=== PATIENT | female | born 1950 | race Caucasian/White ===

== ENCOUNTER 2021-01-16 13:10 | Inpatient (IN) | payer OTHER, SELFPAY ==
[~2021-01-16] VITALS: Ht 162.6 cm; Wt 68.0 kg
[2021-01-16 13:18] VITALS: BP 102/64
--- NOTE | 2021-01-16 13:31 | NUR ---
PT W/C ASSISTED TO BED 4.
--- NOTE | 2021-01-16 13:45 | NUR ---
70/F presents to ED with c/o fall and c/o head, neck and left leg pain. Patient states she does not recall when or how she fell, stating she was seen at a clinic and given xrays stating she was told she had a fractured femur and was told to follow up at the ED. Patient reports 9/10 pain that worsens with movement, denies cp, sob, N/V/D, or urinary symptoms. No other complaints at this time.
[2021-01-16] MEDS ORDERED: NACL 0.9% 500 ML IV ONE (13:50)
[2021-01-16] MEDS ORDERED: MORPHINE SULFATE 4 MG/ML SYR IVP ONE (13:50)
[2021-01-16] MEDS ORDERED: ONDANSETRON 4 MG/2 ML VIAL IVP ONE (13:50)
[2021-01-16 14:25] LABS: BASOPHILS # (AUTO) 0.1 K/uL (0.00-0.22); BASOPHILS % (AUTO) 0.8 % (0.0-2.0); EOSINOPHILS # (AUTO) 0.3 K/uL (0-0.4); EOSINOPHILS % (AUTO) 2.9 % (0.0-4.0); HEMATOCRIT 25.4 % (36-48); LYMPHOCYTES # (AUTO) 2.5 K/uL (2.5-16.5); MEAN CORPUSCULAR HEMOGLOBIN 22 pg (27-31); MEAN CORPUSCULAR HGB CONC 32 g/dL (33-37); MEAN CORPUSCULAR VOLUME 69.2 fL (80-94); MONOCYTES # (AUTO) 1.2 K/uL (0.8-1.0); MONOCYTES % (AUTO) 10.6 % (1.7-9.3); NEUTROPHILS # (AUTO) 7.6 K/uL (1.8-7.7); NEUTROPHILS % (AUTO) 64.7 % (42.2-75.2); PLATELET COUNT (AUTO) 460 K/uL (140-450); RED BLOOD CELL COUNT(AUTO) 3.67 MIL/uL (4.20-5.40); RED CELL DISTRIBUTION WIDTH 15.5 % (11.6-13.7); WHITE BLOOD COUNT (AUTO) 11.7 K/uL (4.8-10.8)
[2021-01-16 14:37] LABS: ANION GAP 10.8 (8-16); CARBON DIOXIDE 31.5 mmol/L (21-32); POTASSIUM 3.3 mmol/L (3.5-5.1)
--- NOTE | 2021-01-16 15:00 | NUR ---
Patient appears to be resting, on bedside cardiac surgeon. All needs met at this time.
[2021-01-16] MEDS ORDERED: DOCUSATE SODIUM 100 MG GELCAP PO PRN (15:50)
[2021-01-16] MEDS ORDERED: MORPHINE SULFATE 2 MG/ML SYR IVP PRN (15:50)
[2021-01-16] MEDS ORDERED: SODIUM PHOS / POTASSIUM PHOS 1 PKT PDR PO PRN (15:50)
[2021-01-16] MEDS ORDERED: LORazepam 2 MG/ML VIAL IM/IVP PRN (15:50)
[2021-01-16] MEDS ORDERED: ACETAMINOPHEN 325 MG TAB PO PRN (15:50)
[2021-01-16] MEDS ORDERED: NACL 0.9% 1,000 ML IV SCH (15:50)
[2021-01-16] MEDS ORDERED: HYDROcodone/APAP 5/325 MG 1 TAB TAB PO PRN (15:50)
[2021-01-16] MEDS ORDERED: MAG SULF 2000 MG/WATER PREMIX 50 ML IV PRN (15:50)
[2021-01-16] MEDS ORDERED: ZOLPIDEM 5 MG TAB PO PRN (15:50)
[2021-01-16] MEDS ORDERED: ONDANSETRON 4 MG/2 ML VIAL IVP PRN (15:50)
[2021-01-16] MEDS ORDERED: POTASSIUM CHLORIDE 10 MEQ TABER PO PRN (15:50)
[2021-01-16 16:38] LABS: CHOL/HDL RATIO 2.7 (1-4.5); FREE T4 (FREE THYROXINE) 1.23 ng/dL (0.76-1.46); PHOSPHORUS 3.1 mg/dL (2.5-4.9); THYROID STIMULATING HORMONE 2.57 uIU/mL (0.34-3.74)
--- NOTE | 2021-01-16 17:00 | NUR ---
Patients diaper changed, new sheets provided. Patient placed in a position of comfort.
[2021-01-16] MEDS ORDERED: POTASSIUM CHLORIDE 20% 40 MEQ/15 ML UDC PO SCH (17:30)
[2021-01-16 17:43] LABS: APPEARANCE,URINE CLEAR (CLEAR); BILIRUBIN,URINE NEGATIVE (NEGATIVE); BLOOD, URINE TRACE-I (NEGATIVE); COLOR,URINE YELLOW (YELLOW); LEUKOCYTE ESTERASE ,URINE TRACE (NEGATIVE); NITRITE, URINE NEGATIVE (NEGATIVE); UGLUCOSE NEGATIVE (NEGATIVE)
[2021-01-16] MEDS ORDERED: FERR-21 PO (18:26)
[2021-01-16] MEDS ORDERED: ASPI-1749 PO (18:26)
[2021-01-16] MEDS ORDERED: QUET100T PO (18:26)
[2021-01-16] MEDS ORDERED: LISI-486 PO (18:26)
[2021-01-16] MEDS ORDERED: DIVA500T1 PO (18:26)
[2021-01-16] MEDS ORDERED: DOCU-299 PO (18:26)
[2021-01-16] MEDS ORDERED: CARV3.12 PO (18:26)
[2021-01-16] MEDS ORDERED: HYDR-4004 PO (18:26)
[2021-01-16] MEDS ORDERED: ASCO500T95 PO (18:28)
[2021-01-16] MEDS: DEXT 5% / NACL 0.45% 1,000 ML IV SCH (18:29)
--- NOTE | 2021-01-16 18:35 | NUR ---
PT APPEARS TO BE RESTING. ALL NEEDS MET AT THIS TIME.
--- NOTE | 2021-01-16 19:40 | NUR ---
PT WAS SEEN FOR DYSPHAGIA. PT WS ABLE TO SAFELY SWALLOW PUREE DIET WITH THIN LIQUID WITHOUT S/S OF ASPIRATION. RECOMMENDATION PUREE DIET WITH THIN LIQUID
[2021-01-16 20:00] VITALS: BP 110/61
[2021-01-16] MEDS: FERROUS SULFATE 325 MG TABEC PO SCH (21:00)
[2021-01-16] MEDS: carvediloL 3.125 MG TAB PO SCH (21:00)
[2021-01-16] MEDS: DOCUSATE SODIUM 100 MG GELCAP PO SCH (21:00)
[2021-01-16] MEDS: DIVALPROEX 500 MG TABER PO SCH (21:00)
[2021-01-16] MEDS: QUEtiapine FUMARATE 100 MG TAB PO SCH (21:00)
--- NOTE | 2021-01-16 21:00 | NUR ---
ALL DUE MEDICATIONS WERE ADMINISTERED BY MOUTH, WELL TOLERATED BY THE PATIENT.
[2021-01-16 22:00] VITALS: BP 106/44
[2021-01-17] MEDS: DEXT 5% / NACL 0.45% 1,000 ML IV SCH ×3 (03:40→23:40)
--- NOTE | 2021-01-17 03:56 | NUR ---
PATIENT RECEIVED IN BED ALERT AND COHERENT NO S/S OF DISTRESS, DENIES PAIN
[2021-01-17 04:00] VITALS: BP 94/47
[2021-01-17 06:41] LABS: ALBUMIN 2.5 g/dL (3.4-5.0); ANION GAP 11.5 (8-16); CARBON DIOXIDE 28.1 mmol/L (21-32); CREATININE 0.9 mg/dL (0.6-1.3); MAGNESIUM 2.1 mg/dL (1.8-2.4); POTASSIUM 3.6 mmol/L (3.5-5.1); TOTAL BILIRUBIN 1.1 mg/dL (0.0-1.0)
[2021-01-17 08:00] VITALS: BP 97/52
--- NOTE | 2021-01-17 08:24 | NUR ---
REPORTS WERE GIVEN TO INCOMING RN, TRANSFER OF CARE ENDORSED.
--- NOTE | 2021-01-17 08:41 | NUR ---
PATIENT HAS BEEN SCREENED AND CATEGORIZED MODERATE NUTRITION RISK. PATIENT WILL BE SEEN WITHIN 3-5 DAYS OF ADMISSION. 01/19/21 01/21/[address]
[2021-01-17] MEDS: ASCORBIC ACID 500 MG TAB PO SCH (09:00)
[2021-01-17] MEDS: FERROUS SULFATE 325 MG TABEC PO SCH ×2 (09:00→21:00)
[2021-01-17] MEDS: DIVALPROEX 500 MG TABER PO SCH ×2 (09:00→21:00)
[2021-01-17] MEDS: hydroCHLOROthiazide 25 MG TAB PO SCH (09:00)
[2021-01-17] MEDS: DOCUSATE SODIUM 100 MG GELCAP PO SCH ×2 (09:00→21:00)
[2021-01-17] MEDS: lisinopriL 10 MG TAB PO SCH (09:00)
[2021-01-17] MEDS: carvediloL 3.125 MG TAB PO SCH ×2 (09:00→21:00)
[2021-01-17] MEDS: ASPIRIN 81 MG TAB.CHEW PO SCH (09:00)
--- NOTE | 2021-01-17 10:06 | NUR ---
RECEIVED REPORT FROM STEVEN, PT IS ALERT ORIENTED X 2 HAS S/P FALL FRACTURE ON LEFT FEMUR. PT IS NPO FOR POSSIBLE ORIF.
[2021-01-17 12:00] VITALS: BP 111/57
--- NOTE | 2021-01-17 12:00 | NUR ---
RECEIVED TELE PHONE CONSENT FROM ISAURA ALMONTE, DIRECTOR OF THE FACILITY OT CAME FROM, CONTACTED HIM ON THIS NUMBER [phone]. STEVEN WAS WITNESSED FOR THE CONSENT. MR. DELAROSA STATED THAT HE ALLOW THE PERMISSION AND CONSENT THAT PT CAN RECEIVE BLOOD TRANSFUSION AND ALSO CONSENTED FOR SURGERY.
--- NOTE | 2021-01-17 15:00 | NUR ---
RECEIVED CALL FROM OR NURSE THAT PT NEED TO RECEIVE BLOOD TRANSFUSION BEFORE THE SURGERY. WILL START INFUSION SHORTLY.
[2021-01-17] MEDS ORDERED: BUPIVACAINE-MPF/EPI 0.5% 30 ML VIAL INJ ONE (15:08)
--- NOTE | 2021-01-17 15:15 | NUR ---
PT IS IN THE BED NO SOB NOTED, BLOOD TRANSFUSION STARTED, BP 108/54, HR 68 97.4 98%, RR 18. DENIES PAIN AND DISCOMFORT AND ITCHINESS. WILL CONTINUE TO MONITOR THE PT.
--- NOTE | 2021-01-17 15:16 | NUR ---
STARTED BLOOD TRANSFUSION STARTED PT BP IS 108/54, HR 71. TEMP 97.4, 98%.
--- NOTE | 2021-01-17 15:30 | NUR ---
PT IS TOLERATING BLOOD TRANSFUSION NO REACTION NOTED. PT DENIES PAIN, ITCHINESS AND SOB. BP 114/53, HR 72, 97.8, RR 16. WILL STAY WITH THE PT AND CONTINUE TO MONITOR THE PT.
[2021-01-17 16:00] VITALS: BP 109/59
[2021-01-17] MEDS ORDERED: ETOMIDATE 20 MG/10 ML VIAL IVP ONE (16:20)
[2021-01-17] MEDS ORDERED: LIDOCAINE MPF 2% 100 MG/5 ML VIAL INJ ONE (16:21)
[2021-01-17] MEDS ORDERED: fentaNYL citrate 0.05 MG/ML VIAL ONE ×3 (16:21→20:39)
[2021-01-17] MEDS ORDERED: ROCURONIUM 50 MG/5 ML VIAL IV ONE ×2 (16:21→19:26)
[2021-01-17] MEDS ORDERED: SUCCINYLCHOLINE CHLORIDE 200 MG/10 ML VIAL IVP ONE (16:21)
[2021-01-17] MEDS ORDERED: PHENYLEPHRINE 10 MG/ML VIAL ONE ×2 (17:00→19:25)
--- NOTE | 2021-01-17 17:17 | NUR ---
PT TRANSFERRED TO OT FOR SURGERY,VITALS ARE STABLE, NO SOB NOTED AT THE TIME OF TRANSFER.
[2021-01-17] MEDS ORDERED: TRANEXAMIC ACID 1,000 MG in NACL 0.9% 50 ML IV STA (17:23)
[2021-01-17] MEDS ORDERED: TRANEXAMIC ACID 1,000 MG/10 ML VIAL IV SCH (17:25)
[2021-01-17] MEDS ORDERED: ePHEDrine 50 MG/ML VIAL ONE (19:25)
[2021-01-17] MEDS ORDERED: DEXAMETHASONE 4 MG/ML VIAL ONE (19:25)
--- NOTE | 2021-01-17 19:37 | NUR ---
ENDORSED THE NIGHT NURSE FOR CONTINUITY OF CARE. PT IS STABLE.
[2021-01-17] MEDS ORDERED: VANCOMYCIN 1,000 MG VIAL ONE (19:38)
[2021-01-17] MEDS ORDERED: ceFAZolin 1,000 MG VIAL ONE (19:39)
[2021-01-17] MEDS ORDERED: NEOSTIGMINE 1:1000 10 MG/10 ML VIAL ONE (19:41)
[2021-01-17] MEDS ORDERED: GLYCOPYRROLATE 0.2 MG/ML VIAL ONE ×2 (19:41)
[2021-01-17] MEDS ORDERED: diphenhydrAMINE 50 MG/ML VIAL IVP PRN (20:30)
[2021-01-17] MEDS ORDERED: LORazepam 2 MG/ML VIAL IVP PRN (20:30)
[2021-01-17] MEDS: LACTATED RINGERS 1,000 ML IV SCH (20:30)
[2021-01-17] MEDS ORDERED: ONDANSETRON 4 MG/2 ML VIAL IVP PRN (20:30)
[2021-01-17] MEDS: fentaNYL citrate 0.05 MG/ML VIAL IVP PRN ×2 (20:41→20:51)
[2021-01-17] MEDS: QUEtiapine FUMARATE 100 MG TAB PO SCH (21:00)
--- NOTE | 2021-01-17 21:48 | NUR ---
Pt arrived from OR Post Anesthesia Recovery Unit - accompanied by JONATHON Cardona. Akash HOLMAN.
[2021-01-18] MEDS: LACTATED RINGERS 1,000 ML IV SCH (05:00)
[2021-01-18] MEDS: DEXT 5% / NACL 0.45% 1,000 ML IV SCH ×2 (05:42→22:08)
[2021-01-18 07:20] LABS: ANION GAP 12.9 (8-16); CARBON DIOXIDE 26.5 mmol/L (21-32); CREATININE 0.9 mg/dL (0.6-1.3); POTASSIUM 4.4 mmol/L (3.5-5.1)
[2021-01-18 07:27] LABS: ALBUMIN 2.4 g/dL (3.4-5.0); MAGNESIUM 1.9 mg/dL (1.8-2.4); TOTAL BILIRUBIN 1.1 mg/dL (0.0-1.0)
--- NOTE | 2021-01-18 07:47 | NUR ---
RECEIVED REPORT FROM NIGHT NURSE, PT HAD ORIF SURGERY YESTERDAY. PT IS ON REGULAR DIET, IV FLUID D5NS1/2 RUNNING AT 100ML/HR. DENIES PAIN AND DISCOMFORT AT THE MOMENT WILL CONTINUE TO MONITOR PT.
[2021-01-18 08:00] VITALS: BP 94/50
[2021-01-18] MEDS: hydroCHLOROthiazide 25 MG TAB PO SCH (09:00)
[2021-01-18] MEDS: carvediloL 3.125 MG TAB PO SCH ×2 (09:00→22:09)
[2021-01-18] MEDS ORDERED: ERGOCALCIFEROL 50,000 IU SGL PO SCH (09:00)
[2021-01-18] MEDS: lisinopriL 10 MG TAB PO SCH (09:00)
[2021-01-18] MEDS: DIVALPROEX 500 MG TABER PO SCH ×2 (09:09→22:09)
[2021-01-18] MEDS: FERROUS SULFATE 325 MG TABEC PO SCH ×2 (09:09→21:00)
[2021-01-18] MEDS: ASPIRIN 81 MG TAB.CHEW PO SCH (09:09)
[2021-01-18] MEDS: DOCUSATE SODIUM 100 MG GELCAP PO SCH ×2 (09:10→22:08)
[2021-01-18] MEDS: ENOXAPARIN 40 MG/0.4 ML SYR SUBQ SCH (09:10)
[2021-01-18] MEDS: ASCORBIC ACID 500 MG TAB PO SCH (09:22)
--- NOTE | 2021-01-18 09:22 | NUR ---
ADMINISTERED ALL PRESCRIBED MEDICATIONS EXCEPT THE BLOOD PRESSURE PILLS. BLOOD PRESSURE IS 94/57 HR 59. WILL CONTINUE TO MONITOR PT FOR HYPOTENSIONS/HYPERTENSION.
[2021-01-18 12:00] VITALS: BP 99/44
--- NOTE | 2021-01-18 16:04 | NUR ---
LAB CAME TO COLLECT THE BLOOD SAMPLE, PT REFUSED. EDUCATED PT ABOUT THE IMPORTANCE OF TESTING. PT REFUSED.
[2021-01-18 18:00] VITALS: BP 100/51
--- NOTE | 2021-01-18 18:31 | NUR ---
PT IS IN THE BED DENIES PAIN AND DISCOMFORT AT THE MOMENT.
[2021-01-18 20:00] VITALS: BP 103/55
[2021-01-18] MEDS: QUEtiapine FUMARATE 100 MG TAB PO SCH (22:10)
[2021-01-19] VITALS: BP 104/56
[2021-01-19 04:00] VITALS: BP 119/62
[2021-01-19 06:10] LABS: ALBUMIN 2.3 g/dL (3.4-5.0); CARBON DIOXIDE 29.1 mmol/L (21-32); CREATININE 0.9 mg/dL (0.6-1.3); MAGNESIUM 1.9 mg/dL (1.8-2.4); POTASSIUM 4.1 mmol/L (3.5-5.1); TOTAL BILIRUBIN 0.7 mg/dL (0.0-1.0)
--- NOTE | 2021-01-19 07:11 | NUR ---
Assumed care last night. A/O. Able to verbalize needs. Had a good night sleep. In no acute distress. In no pain. IV in the left antecubital is leaking. She has adamantly refused to have a new one put in, stating, " I do not need one." Will endorse to AM RN.
--- NOTE | 2021-01-19 07:43 | NUR ---
RECEIVED REPORT FROM NIGHT NURSE PT IS IN THE BED ALERT ORIENTED X 4 VERBALLY RESPONSIVE. DENIES PAIN AND DISCOMFORT. HAD ORIF SURGERY ON LEFT LEG DRESSING IS INTACT. PT PULLED IV LAST NIGHT, AND REFUSED TO PUT NEW. WILL GET THE NEW IV ACCESS. POC IS DISCUSSED WILL CONTINUE TO FOLLOW IT.
[2021-01-19 08:00] VITALS: BP 115/51
[2021-01-19] MEDS: FERROUS SULFATE 325 MG TABEC PO SCH ×2 (08:44→22:00)
[2021-01-19] MEDS: ASPIRIN 81 MG TAB.CHEW PO SCH (08:45)
[2021-01-19] MEDS: ASCORBIC ACID 500 MG TAB PO SCH (08:45)
[2021-01-19] MEDS: DIVALPROEX 500 MG TABER PO SCH ×2 (08:45→21:59)
[2021-01-19] MEDS: hydroCHLOROthiazide 25 MG TAB PO SCH (08:46)
[2021-01-19] MEDS: carvediloL 3.125 MG TAB PO SCH ×2 (08:46→22:00)
[2021-01-19] MEDS: DOCUSATE SODIUM 100 MG GELCAP PO SCH ×2 (08:47→22:00)
[2021-01-19] MEDS: ENOXAPARIN 40 MG/0.4 ML SYR SUBQ SCH (08:48)
[2021-01-19] MEDS: lisinopriL 10 MG TAB PO SCH (09:02)
--- NOTE | 2021-01-19 09:11 | NUR ---
ADMINISTERED ALL PRESCRIBED MEDICATIONS PER MD ORDER. FEEDER IS FEEDING THE PT, NO DYSPHAGIA NOTED. PT DENIES PAIN AT THE MOMENT.
[2021-01-19 10:18] LABS: BASOPHILS # (AUTO) 0.1 K/uL (0.00-0.22); BASOPHILS % (AUTO) 0.5 % (0.0-2.0); EOSINOPHILS # (AUTO) 0.2 K/uL (0-0.4); EOSINOPHILS % (AUTO) 1.7 % (0.0-4.0); HEMATOCRIT 23.8 % (36-48); HEMOGLOBIN 7.5 g/dL (12.0-16.0); LYMPHOCYTES # (AUTO) 2.8 K/uL (2.5-16.5); MEAN CORPUSCULAR HEMOGLOBIN 23 pg (27-31); MEAN CORPUSCULAR HGB CONC 32 g/dL (33-37); MEAN CORPUSCULAR VOLUME 72.8 fL (80-94); MONOCYTES # (AUTO) 1.2 K/uL (0.8-1.0); MONOCYTES % (AUTO) 10.6 % (1.7-9.3); NEUTROPHILS % (AUTO) 62.2 % (42.2-75.2); PLATELET COUNT (AUTO) 380 K/uL (140-450); RED BLOOD CELL COUNT(AUTO) 3.27 MIL/uL (4.20-5.40); RED CELL DISTRIBUTION WIDTH 18.2 % (11.6-13.7); WHITE BLOOD COUNT (AUTO) 11.3 K/uL (4.8-10.8)
--- NOTE | 2021-01-19 11:37 | NUR ---
STARTED NEW IV ON LEFT HAND 24 GAUGE. PT TOLERATED WELL, CONNECTED TO IV FLUIDS.
[2021-01-19 12:00] VITALS: BP 106/54
[2021-01-19] MEDS: DEXT 5% / NACL 0.45% 1,000 ML IV SCH ×2 (13:00→16:30)
--- NOTE | 2021-01-19 13:00 | NUR ---
GAVE SPONGE BATH TO PT, CHANGED THE GOWN AND SHEETS. PT IS COMFORTABLE, DENIES PAIN AND DISCOMFORT, SURGICAL DRESSING IS INTACT NO DRAINAGE NOTED.
--- NOTE | 2021-01-19 15:55 | NUR ---
PT IS SLEEPING IN THE BED, NO S/S OF PAIN NOTED, WILL CONTINUE TO MONITOR PT.
[2021-01-19 17:30] VITALS: BP 106/54
--- NOTE | 2021-01-19 19:21 | NUR ---
ENDORSED THE NIGHT NURSE CONTINUITY OF CARE PT IS STABLE.
--- NOTE | 2021-01-19 19:55 | NUR ---
Assumed care. She is resting calmly with eyes closed. In no acute distress, respiratory or otherwise. Had refised IV line this AM, but Am JONATHON Jackson was able to insert one. IV fluids are presently infusing. F/C remains in place. We shall turn every 2 hours. Will administer PM medications. Will continue to monitor.
[2021-01-19 20:00] VITALS: BP 105/58
[2021-01-19] MEDS: QUEtiapine FUMARATE 100 MG TAB PO SCH (22:01)
[2021-01-20] MEDS: DEXT 5% / NACL 0.45% 1,000 ML IV SCH ×2 (02:29→11:40)
[2021-01-20 04:00] VITALS: BP 115/59
[2021-01-20 05:35] LABS: BASOPHILS # (AUTO) 0.1 K/uL (0.00-0.22); BASOPHILS % (AUTO) 0.5 % (0.0-2.0); EOSINOPHILS # (AUTO) 0.2 K/uL (0-0.4); EOSINOPHILS % (AUTO) 2.3 % (0.0-4.0); HEMATOCRIT 22.2 % (36-48); HEMOGLOBIN 7.2 g/dL (12.0-16.0); LYMPHOCYTES # (AUTO) 3.3 K/uL (2.5-16.5); LYMPHOCYTES % (AUTO) 32.1 % (20.5-51.1); MEAN CORPUSCULAR HEMOGLOBIN 24 pg (27-31); MEAN CORPUSCULAR HGB CONC 32 g/dL (33-37); MEAN CORPUSCULAR VOLUME 72.5 fL (80-94); MONOCYTES # (AUTO) 0.9 K/uL (0.8-1.0); MONOCYTES % (AUTO) 8.7 % (1.7-9.3); NEUTROPHILS # (AUTO) 5.8 K/uL (1.8-7.7); NEUTROPHILS % (AUTO) 56.4 % (42.2-75.2); PLATELET COUNT (AUTO) 344 K/uL (140-450); RED BLOOD CELL COUNT(AUTO) 3.06 MIL/uL (4.20-5.40); WHITE BLOOD COUNT (AUTO) 10.2 K/uL (4.8-10.8)
[2021-01-20 06:32] LABS: ALBUMIN 2.1 g/dL (3.4-5.0); ANION GAP 12.1 (8-16); CARBON DIOXIDE 28.9 mmol/L (21-32); CREATININE 0.8 mg/dL (0.6-1.3); MAGNESIUM 1.9 mg/dL (1.8-2.4); TOTAL BILIRUBIN 0.6 mg/dL (0.0-1.0)
--- NOTE | 2021-01-20 07:20 | NUR ---
RECEIVE REPORT FROM ECONOMIC ANALYSIS DIRECTOR NURSE FOR CONTINUITY OF CARE. PATIENT SLEEPING. PATIENT ON RA. NO ACUTE DISTRESS NOTED. PATIENT PULLED OUT IV. WILL ATTEMPT TO INSERT NEW ONE. CALL LIGHT WITHIN REACH. ALL SAFETY MEASURES IN PLACE. WILL CONTINUE TO MONITOR.
[2021-01-20 08:00] VITALS: BP 108/50
[2021-01-20] MEDS: lisinopriL 10 MG TAB PO SCH (09:00)
[2021-01-20] MEDS: hydroCHLOROthiazide 25 MG TAB PO SCH (09:00)
[2021-01-20] MEDS: ASPIRIN 81 MG TAB.CHEW PO SCH (09:34)
[2021-01-20] MEDS: carvediloL 3.125 MG TAB PO SCH (09:35)
[2021-01-20] MEDS: DOCUSATE SODIUM 100 MG GELCAP PO SCH (09:36)
[2021-01-20] MEDS: DIVALPROEX 500 MG TABER PO SCH (09:36)
[2021-01-20] MEDS: ASCORBIC ACID 500 MG TAB PO SCH (09:36)
[2021-01-20] MEDS: FERROUS SULFATE 325 MG TABEC PO SCH (09:36)
--- NOTE | 2021-01-20 09:36 | NUR ---
PATIENT AWAKE AND ALERT. NO ACUTE DISTRESS NOTED. SCHEDULED MEDICATION GIVEN. PATIENT DENIES PAIN AT THIS TIME. ALL SAFETY MEASURES IN PLACE. CALL LIGHT WITHIN REACH. WILL CONTINUE TO MONITOR.
[2021-01-20] MEDS: ENOXAPARIN 40 MG/0.4 ML SYR SUBQ SCH (09:42)
--- NOTE | 2021-01-20 09:45 | NUR ---
WOUND CARE NOTE: SKIN ASSESSMENT DONE WITH THIS 70 Y/O PT. AWAKE WITH CONFUSION ABLE TO FOLLOW DIRECTIONS AND ASSIST IN TURNING TO SISE TO SIDE. LEFT HIP SURGICAL WOUND MULTIPLE SUTURES, 7 CM IN LENGTH ,WOUND SITE DRY AND CLEAN NO S/S OF WOUND DEHISCENCE. LEFT THIGH CLEAR FLUIDS INTACT BLISTER 0.5X3CM. LEFT HEEL 1X1CM NON-BLANCHABLE. RIGHT AND LEFT BUTTOCKS MOISTURE ASSOCIATED DERMATITIS MULTIPLE EROSIONS DENUDED SKIN EXTENDED TO SACRALCOCCYX. POC DISCUSSED WITH PRIMARY RN AND PT. PT. VERBALIZES UNDERSTANDING. RECOMMENDATIONS: -CLEANSE SACRALCOCCYX AND BUTTOCKS WITH MILD SOAP AND WATER, PAT DRY, APPLY Z GUARD BID AND PRN IF SOILING -CLEANSE LEFT HIP SURGICAL WOUND WITH NS, PAT DRY, APPLY DRY DRESSING QD AND PRN IF SOILING, -APPLY VERSATEL DRESSING TO LEFT THIGH Q5 DAYS AND PRN IF SOILING -APPLY SKIN PREP. TO BILATERAL HEELS BID TELETYPESETTER APPLY HEEL PROTECTORS -TURN AND REPOSITION PATIENT Q 2H -ASSESS AND MONITOR SKIN CONDITION DURING POSITION CHANGE -OFFLOAD BILATERAL HEELS BY PLACING PILLOWS UNDER CALVES AT ALL TIMES, UNLESS OTHERWISE CONTRAINDICATED -PRESSURE REDISTRIBUTION SURFACE AND OFFLOADING SACRALCOCCYX -KEEP SKIN CLEAN AND DRY AT ALL TIMES.
[2021-01-20] MEDS ORDERED: CEPH250C16 PO (11:00)
[2021-01-20] MEDS ORDERED: LOV40I SC (11:00)
--- NOTE | 2021-01-20 11:15 | NUR ---
PATIENT SLEEPING. NO ACUTE DISTRESS NOTED. BREATHING EVEN AND UNLABORED. EASY TO AWAKEN. ALL SAFETY MEASURES IN PLACE. CALL LIGHT WITHIN REACH. WILL CONTINUE TO MONITOR.
--- NOTE | 2021-01-20 11:43 | NUR ---
DC PLANNING: CM SPOKE WITH THE OUTPATIENT DIETITIAN FOR THE PATIENTS ORIGINATING FACILITY [facility] TO ASK ABOUT A PREFERRED SNF FOR THE PATIENT, CM WAS ASKED TO REFER THE PATIENT TO [facility]. REFERRAL FAXED, PATIENT ASSIGNED ROOM 18A, REQUEST FOR TRANSPORT FAXED TO [facility]. ABOVE ENDORSED TO PATIENTS JONATHON WARE. PATIENTS BASELINE FUNCTIONING PER THE [facility] OUTPATIENT DIETITIAN IS HIGH LEVEL, INDEPENDENT WITH AMBULATION, ADL'S, FEEDINGS AND OVERALL CARE. THE PATIENT HAS BEEN IN THE [facility] FOR SIX YEARS AND AND THEY ACT HER CONSERVATOR AND DECISION MAKER. STATES PATIENT SLIPPED ON SOMETHING WHILE GOING BACK TO HER ROOM AND SUSTAINED HER FX. PATIENT IS S/P ORIF, ALL DC ORDERS AND INSTRUCTIONS FOR CARE AND P.T. FAXED TO [facility]. CM WILL FOLLOW FOR NEEDS.
[2021-01-20] MEDS ORDERED: GAUZE TP SCH (13:00)
[2021-01-20] MEDS ORDERED: Z-GUARD PASTE TP SCH (13:00)
--- NOTE | 2021-01-20 13:18 | NUR ---
PATIENT AWAKE AND ALERT. NO ACUTE DISTRESS NOTED. PATIENT DENIES PAIN AT THIS TIME. COAT PRESSER A BEDSIDE AIDING WITH ADLS. ALL SAFETY MEASURES IN PLACE. CALL LIGHT WITHIN REACH. WILL CONTINUE TO MONITOR.
--- NOTE | 2021-01-20 14:05 | NUR ---
DR. WEINER CALLED TO FOLLOWUP ON PATIENT'S WOUND.
--- NOTE | 2021-01-20 16:13 | NUR ---
PATIENT SLEEPING. NO ACUTE DISTRESS NOTED. ALL SAFETY MEASURES IN PLACE. CALL LIGHT WITHIN REACH. WILL CONTINUE TO MONITOR.
--- NOTE | 2021-01-20 17:14 | NUR ---
PATIENT AWAKE AND ALERT. NO ACUTE DISTRESS NOTED. PATIENT ON ROOM AIR. VS STABLE. DISCHARGE INFORMATION GIVEN. PATIENT VERBALIZE UNDERSTANDING. PATIENT NOT ABLE TO SIGN DUE TO BEING LEGALLY BLIND. PATIENT GIVEN COPIES OF ALL FORM TO TAKE WITH HER TO [facility]. PATIENT WRISTBAND REMOVED. PATIENT REFUSED NEW IV. PATIENT TRANSPORTED VIA GURNEY TO SNF.
== END 2021-01-20 17:33 | DRG 480 ==
LOC: MED 13:10 → MTU 15:51
PROVIDERS: ADMIT Family Medicine; ATTEND Family Medicine
PROC: 30233N1 Transfusion of Nonautologous Red Blood Cells into Peripheral Vein, Percutaneous Approach (ICD-10-PCS; 2021-01-17)
PROC: 0QS706Z Reposition Left Upper Femur with Intramedullary Internal Fixation Device, Open Approach (ICD-10-PCS; principal; 2021-01-17 17:00)
DX: S72.142A Displaced intertrochanteric fracture of left femur, initial encounter for closed fracture (principal); E43 Unspecified severe protein-calorie malnutrition; G93.41 Metabolic encephalopathy; N39.0 Urinary tract infection, site not specified; E87.1 Hypo-osmolality and hyponatremia; F20.9 Schizophrenia, unspecified; J44.9 Chronic obstructive pulmonary disease, unspecified; H54.7 Unspecified visual loss; M47.812 Spondylosis without myelopathy or radiculopathy, cervical region; F39 Unspecified mood [affective] disorder; Z20.822 Contact with and (suspected) exposure to COVID-19; I10 Essential (primary) hypertension; E87.6 Hypokalemia; E86.0 Dehydration; W01.0XXA Fall on same level from slipping, tripping and stumbling without subsequent striking against object, initial encounter; Y93.89 Activity, other specified; Y92.89 Other specified places as the place of occurrence of the external cause; Y99.8 Other external cause status; Z68.25 Body mass index [BMI] 25.0-25.9, adult
CPT/HCPCS: 36415; 70450; 71045; 72125; 72170; 73700; 80048; 80053; 81001; 82150; 83036; 83690; 83735; 83880; 84100; 84439; 84443; 84484; 85025; 85610; 85730; 86886; 86900; 86901; 86920; 87081; 87086; 92610; 93005; 96361; 96374; 96375; 97110; 97112; 97163-GP; 97164; 97530; 99285; C1713; J0330; J0690; J0696; J1100; J1650; J2001; J2060; J2270; J2370; J2405; J2710; J3010; J3370; J3490; J7060; J7120; P9016; Q0092